=== PATIENT | male | born 1955 | race Caucasian/White ===

== ENCOUNTER 2020-11-25 18:16 | Emergency (ER) | payer MEDICARE, OTHER ==
[~2020-11-25] VITALS: Ht 172.7 cm; Wt 75.7 kg
[~2020-11-25 18:16] MED LIST: ASPI-1169 PO; CARB200T8 PO; GABA800T PO; ICOS1CAP PO; LEVE100023 PO; NEBI5TAB8 PO; OMEP20CA15 PO
[2020-11-25 18:52] VITALS: BP 134/77
== END 2020-11-25 19:42 | disposition home or self-care (01) ==
LOC: ER 18:18
DX: U07.1 COVID-19 (principal); R43.9 Unspecified disturbances of smell and taste; R00.0 Tachycardia, unspecified; Z95.0 Presence of cardiac pacemaker; I10 Essential (primary) hypertension; I69.854 Hemiplegia and hemiparesis following other cerebrovascular disease affecting left non-dominant side; S06.9X0S Unspecified intracranial injury without loss of consciousness, sequela; X58.XXXS Exposure to other specified factors, sequela; I49.9 Cardiac arrhythmia, unspecified; Z79.82 Long term (current) use of aspirin; Z79.899 Other long term (current) drug therapy
CPT/HCPCS: C9803; U0003